=== PATIENT | female | born 2000 | race Caucasian/White ===

== ENCOUNTER 2020-09-03 02:33 | Emergency (ER) | payer OTHER ==
[2020-09-03] MEDS ORDERED: IMITREX25 MG PO (04:26)
== END 2020-09-03 05:00 | disposition home or self-care (01) ==
LOC: FER 02:33
DX: G43.909 Migraine, unspecified, not intractable, without status migrainosus (principal)
CPT/HCPCS: J0780; J1200; J1885; J7030